=== PATIENT | female | born 1980 | race Caucasian/White ===

== ENCOUNTER 2021-10-23 13:12 | Emergency (ER) | payer MEDICARE, OTHER ==
[2021-10-23 13:16] VITALS: RESP 18; TEMP 98
[2021-10-23] MEDS ORDERED: SODIUM CHLORIDE 0.9% 1,000 ML IV STA (13:54)
[2021-10-23] MEDS ORDERED: PANTOPRAZOLE 40 MG/10 ML VIAL IVP STA (13:56)
[2021-10-23] MEDS ORDERED: diphenhydrAMINE 50 MG/ML 1 ML VIAL IVP STA (14:05)
[2021-10-23] MEDS ORDERED: methylPREDNISolone SOD SUCCI 125 MG/2 ML VIAL IV STA (14:05)
[2021-10-23] MEDS ORDERED: FAMOTIDINE 20 MG/2 ML VIAL IV STA (14:05)
--- NOTE | 2021-10-23 14:23 | ED ---
General Adult HPI - General Chief complaint: GI Bleed Stated complaint: GI Bleed Time Seen by Provider: 10/23/21 13:38 Source: patient Mode of arrival: ambulatory Limitations: no limitations - History of Present Illness Initial comments: This 41-year-old female with past medical history of diverticulitis and constipation presents to the emergency department with blood per rectum 7 days. Patient states she has noticed episodes of prior red blood in the toilet and on her toilet paper on-and-off for the last week. Patient states she does have a hemorrhoid that may be bleeding. Patient states she did have a small bowel movement 3 days ago and did notice some blood in her stool then. Patient states her regular bowel movements are a couple hard balls every few days. She states her last bowel movement that was like this was 3 days ago. She states there is no clots coming from her rectum. She describes as "dripping" when sitting down on the toilet and blood getting on the toilet paper after wiping. Patient states she has had a colonoscopy in her past and was told she had polyps. Patient states she does use on a daily. Patient denies any chest pain, nausea, fever, vomiting, hemoptysis, change in bladder, headache, change in vision, s hortness of breath. - Related Data Previous Rx's Medication Instructions Recorded Docusate [Colace] 100 mg PO DAILY #30 capsule 10/23/21 Levothyroxine Sodium [Synthroid] 75 mcg PO DAILY #7 tab 10/23/21 Allergies Allergy/AdvReac Type Severity Reaction Status Date / Time aspirin Allergy Unknown Verified 10/23/21 13:14 Childhood iodine Allergy Unknown Verified 10/23/21 13:14 Childhood Penicillins Allergy Unknown Verified 10/23/21 13:14 Childhood Review of Systems ROS Statement: Those systems with pertinent positive or pertinent negative responses have been documented in the HPI. ROS Other: All systems not noted in ROS Statement are negative. Past Medical History Past Medical History: Seizure Disorder, Thyroid Disorder History of Any Multi-Drug Resistant Organisms: None Reported Past Psychological History: No Psychological Hx Reported Smoking Status: Current every day smoker Past Alcohol Use History: None Reported Past Drug Use History: Marijuana General Exam Limitations: no limitations General appearance: alert, in no apparent distress Head exam: Present: atraumatic, normocephalic, normal inspection Eye exam: Present: normal appearance, PERRL, EOMI. Absent: scleral icterus, conjunctival injection, periorbital swelling ENT exam: Present: mucous membranes moist Neck exam: Present: full ROM Respiratory exam: Present: normal lung sounds bilaterally. Absent: respiratory distress, wheezes, rales, rhonchi, stridor Cardiovascular Exam: Present: regular rate, normal rhythm, normal heart sounds. Absent: systolic murmur, diastolic murmur, rubs, gallop, clicks GI/Abdominal exam: Present: soft, tenderness (Left lower quadrant tender to palpation), normal bowel sounds. Absent: distended, guarding, rebound, rigid Rectal exam: Present: normal rectal tone, heme (+) stool, hemorrhoids (1 hemorrhoid present. No active bleeding from hemorrhoid.), other (No blood visible from rectum) Extremities exam: Present: full ROM Back exam: Present: full ROM. Absent: tenderness, CVA tenderness (R), CVA tenderness (L) Neurological exam: Present: alert, oriented X3, CN II-XII intact Psychiatric exam: Present: normal affect, normal mood Skin exam: Present: warm, dry, intact, normal color. Absent: rash Course Vital Signs 10/23/21 10/23/21 13:14 17:14 Temperature 98 F Pulse Rate 94 68 Respiratory 18 18 Rate Blood Pressure 113/63 102/67 O2 Sat by Pulse 99 99 Oximetry - Reevaluation(s) Reevaluation #1: 10/23/21 17:00 Patient states she currently has no pain and feels well. Medical Decision Making - Medical Decision Making This 41-year-old female presents to the emergency department with bleeding per rectum 1 week. Patient states she does have a hemorrhoid that has been present for "a long time." She denies any clots per rectum and states it is "dripping when sitting down on the toilet and on the toilet paper". Labs unremarkable. Coagulations unremarkable. Urine unremarkable. Stool occult blood positive. CT abdomen and pelvis impression: There is no bowel obstruction present. There is some retained fecal material in the large bowel. Colace was prescribed patient. There is no ascites or free air. Normal appendix. Otherwise negative exam. Patient requested her TSH to be drawn which was high, but Synthroid given here with a week's worth prescribed until patient can follow up with a primary care provider. Patient to follow-up with primary care provider sometime next we ek. Patient was given primary care provider and GI provider contact information. Patient to be sent home to follow-up with GI next 24-48 hours. Strict return precautions were discussed. Patient verbally agreed to plan. Patient sent home in stable condition. Discussed this case with my attending, . - Lab Data Result diagrams: 10/23/21 14:15 10/23/21 14:15 Lab Results 10/23/21 10/23/21 10/23/21 Range/Units 14:05 14:13 14:15 WBC 8.4 (3.8-10.6) k/uL RBC 3.93 (3.80-5.40) m/uL Hgb 11.9 (11.4-16.0) gm/dL Hct 37.4 (34.0-46.0) % MCV 95.3 (80.0-100.0) fL MCH 30.4 (25.0-35.0) pg MCHC 31.8 (31.0-37.0) g/dL RDW 14.7 (11.5-15.5) % Plt Count 251 (150-450) k/uL MPV 9.1 Neutrophils % 65 % Lymphocytes % 26 % Monocytes % 3 % Eosinophils % 2 % Basophils % 1 % Neutrophils # 5.5 (1.3-7.7) k/uL Lymphocytes # 2.2 (1.0-4.8) k/uL Monocytes # 0.3 (0-1.0) k/uL Eosinophils # 0.2 (0-0.7) k/uL Basophils # 0.1 (0-0.2) k/uL Hypochromasia Slight PT (9.0-12.0) sec INR (<1.2) APTT (22.0-30.0) sec Sodium (137-145) mmol/L Potassium (3.5-5.1) mmol/L Chloride (98-107) mmol/L Carbon Dioxide (22-30) mmol/L Anion Gap mmol/L BUN (7-17) mg/dL Creatinine (0.52-1.04) mg/dL Est GFR (CKD-EPI)AfAm (>60 ml/min/1.73 sqM) Est GFR (CKD-EPI)NonAf (>60 ml/min/1.73 sqM) Glucose (74-99) mg/dL Plasma Lactic Acid Louis (0.7-2.0) mmol/L Calcium (8.4-10.2) mg/dL Magnesium (1.6-2.3) mg/dL Total Bilirubin (0.2-1.3) mg/dL AST (14-36) U/L ALT (4-34) U/L Alkaline Phosphatase (38-126) U/L Total Protein (6.3-8.2) g/dL Albumin (3.5-5.0) g/dL Lipase (23-300) U/L TSH (0.465-4.680) mIU/L Free T4 (0.78-2.19) ng/dL Urine Color Urine Appearance (Clear) Urine pH (5.0-8.0) Ur Specific Reading (1.001-1.035) Urine Protein (Negative) Urine Glucose (UA) (Negative) Urine Ketones (Negative) Urine Blood (Negative) Urine Nitrite (Negative) Urine Bilirubin (Negative) Urine Urobilinogen (<2.0) mg/dL Ur Leukocyte Esterase (Negative) Urine RBC (0-5) /hpf Urine WBC (0-5) /hpf Ur Squamous Epith Cells (0-4) /hpf Stool Occult Blood (Negative) Blood Type A Positive Blood Type Confirm A Positive Blood Type Recheck No Previous Record Bld Type Recheck Status CABO Indicated Antibody Screen NEGATIVE Spec Expiration Date 10/26/2021 - 231410/23/21 10/23/21 10/23/21 Range/Units 14:15 14:15 14:15 WBC (3.8-10.6) k/uL RBC (3.80-5.40) m/uL Hgb (11.4-16.0) gm/dL Hct (34.0-46.0) % MCV (80.0-100.0) fL MCH (25.0-35.0) pg MCHC (31.0-37.0) g/dL RDW (11.5-15.5) % Plt Count (150-450) k/uL MPV Neutrophils % % Lymphocytes % % Monocytes % % Eosinophils % % Basophils % % Neutrophils # (1.3-7.7) k/uL Lymphocytes # (1.0-4.8) k/uL Monocytes # (0-1.0) k/uL Eosinophils # (0-0.7) k/uL Basophils # (0-0.2) k/uL Hypochromasia PT 9.7 (9.0-12.0) sec INR 0.9 (<1.2) APTT 26.6 (22.0-30.0) sec Sodium 136 L (137-145) mmol/L Potassium 4.3 (3.5-5.1) mmol/L Chloride 108 H (98-107) mmol/L Carbon Dioxide 24 (22-30) mmol/L Anion Gap 4 mmol/L BUN 16 (7-17) mg/dL Creatinine 0.74 (0.52-1.04) mg/dL Est GFR (CKD-EPI)AfAm >90 (>60 ml/min/1.73 sqM) Est GFR (CKD-EPI)NonAf >90 (>60 ml/min/1.73 sqM) Glucose 90 (74-99) mg/dL Plasma Lactic Acid Louis (0.7-2.0) mmol/L Calcium 9.3 (8.4-10.2) mg/dL Magnesium 1.7 (1.6-2.3) mg/dL Total Bilirubin 0.2 (0.2-1.3) mg/dL AST 38 H (14-36) U/L ALT 29 (4-34) U/L Alkaline Phosphatase 59 (38-126) U/L Total Protein 7.2 (6.3-8.2) g/dL Albumin 4.2 (3.5-5.0) g/dL Lipase 156 (23-300) U/L TSH 39.600 H (0.465-4.680) mIU/L Free T4 0.19 L (0.78-2.19) ng/dL Urine Color Urine Appearance (Clear) Urine pH (5.0-8.0) Ur Specific Reading (1.001-1.035) Urine Protein (Negative) Urine Glucose (UA) (Negative) Urine Ketones (Negative) Urine Blood (Negative) Urine Nitrite (Negative) Urine Bilirubin (Negative) Urine Urobilinogen (<2.0) mg/dL Ur Leukocyte Esterase (Negative) Urine RBC (0-5) /hpf Urine WBC (0-5) /hpf Ur Squamous Epith Cells (0-4) /hpf Stool Occult Blood Positive H (Negative) Blood Type Blood Type Confirm Blood Type Recheck Bld Type Recheck Status Antibody Screen Spec Expiration Date 10/23/21 10/23/21 Range/Units 14:15 14:21 WBC (3.8-10.6) k/uL RBC (3.80-5.40) m/uL Hgb (11.4-16.0) gm/dL Hct (34.0-46.0) % MCV (80.0-100.0) fL MCH (25.0-35.0) pg MCHC (31.0-37.0) g/dL RDW (11.5-15.5) % Plt Count (150-450) k/uL MPV Neutrophils % % Lymphocytes % % Monocytes % % Eosinophils % % Basophils % % Neutrophils # (1.3-7.7) k/uL Lymphocytes # (1.0-4.8) k/uL Monocytes # (0-1.0) k/uL Eosinophils # (0-0.7) k/uL Basophils # (0-0.2) k/uL Hypochromasia PT (9.0-12.0) sec INR (<1.2) APTT (22.0-30.0) sec Sodium (137-145) mmol/L Potassium (3.5-5.1) mmol/L Chloride (98-107) mmol/L Carbon Dioxide (22-30) mmol/L Anion Gap mmol/L BUN (7-17) mg/dL Creatinine (0.52-1.04) mg/dL Est GFR (CKD-EPI)AfAm (>60 ml/min/1.73 sqM) Est GFR (CKD-EPI)NonAf (>60 ml/min/1.73 sqM) Glucose (74-99) mg/dL Plasma Lactic Acid Louis 1.1 (0.7-2.0) mmol/L Calcium (8.4-10.2) mg/dL Magnesium (1.6-2.3) mg/dL Total Bilirubin (0.2-1.3) mg/dL AST (14-36) U/L ALT (4-34) U/L Alkaline Phosphatase (38-126) U/L Total Protein (6.3-8.2) g/dL Albumin (3.5-5.0) g/dL Lipase (23-300) U/L TSH (0.465-4.680) mIU/L Free T4 (0.78-2.19) ng/dL Urine Color Yellow Urine Appearance Cloudy H (Clear) Urine pH 6.5 (5.0-8.0) Ur Specific Reading 1.017 (1.001-1.035) Urine Protein Negative (Negative) Urine Glucose (UA) Negative (Negative) Urine Ketones Negative (Negative) Urine Blood Negative (Negative) Urine Nitrite Negative (Negative) Urine Bilirubin Negative (Negative) Urine Urobilinogen <2.0 (<2.0) mg/dL Ur Leukocyte Esterase Negative (Negative) Urine RBC 1 (0-5) /hpf Urine WBC <1 (0-5) /hpf Ur Squamous Epith Cells 7 H (0-4) /hpf Stool Occult Blood (Negative) Blood Type Blood Type Confirm Blood Type Recheck Bld Type Recheck Status Antibody Screen Spec Expiration Date Disposition Clinical Impression: External hemorrhoid, GI bleed Disposition: HOME SELF-CARE Condition: Stable Instructions (If sedation given, give patient instructions): Gastrointestinal Bleeding (ED), Hemorrhoids (ED) Additional Instructions: Please return to the emergency department with any concerning, new, worsening symptoms. Follow-up with primary care provider next 24-48 hours. Follow-up with GI next 24-48 hours. Prescriptions: Docusate [Colace] 100 mg PO DAILY #30 capsule Levothyroxine Sodium [Synthroid] 75 mcg PO DAILY #7 tab Is patient prescribed a controlled substance at d/c from ED?: No Referrals: None,Stated [Primary Care Provider] - 1-2 days Nickie Rincon MD [REFERRING] - 1-2 days Radha Dominguez MD [STAFF PHYSICIAN] - 1-2 days Time of Disposition: 17:12
[2021-10-23 14:37] LABS: Basophils # (A) 0.1 k/uL (0-0.2); Basophils % (A) 1 %; Eosinophils # (A) 0.2 k/uL (0-0.7); Eosinophils % (A) 2 %; HCT 37.4 % (34.0-46.0); HGB 11.9 gm/dL (11.4-16.0); Hypochromasia Slight; Lymphocytes # (A) 2.2 k/uL (1.0-4.8); Lymphocytes % (A) 26 %; MCH 30.4 pg (25.0-35.0); MCHC 31.8 g/dL (31.0-37.0); MCV 95.3 fL (80.0-100.0); Mean Platelet Volume 9.1; Monocytes # (A) 0.3 k/uL (0-1.0); Monocytes % (A) 3 %; Neutrophils # (A) 5.5 k/uL (1.3-7.7); Neutrophils % (A) 65 %; Platelet Count 251 k/uL (150-450); RBC 3.93 m/uL (3.80-5.40); RDW 14.7 % (11.5-15.5); WBC 8.4 k/uL (3.8-10.6)
[2021-10-23 14:42] LABS: ALT 29 U/L (4-34); AST 38 U/L (14-36); African American GFR (CKD) >90 (>60 ml/min/1.73 sqM); Albumin 4.2 g/dL (3.5-5.0); Alkaline Phosphatase 59 U/L (38-126); Anion Gap 4 mmol/L; Blood Urea Nitrogen 16 mg/dL (7-17); Calcium 9.3 mg/dL (8.4-10.2); Carbon Dioxide 24 mmol/L (22-30); Chloride 108 mmol/L (98-107); Glucose 90 mg/dL (74-99); Lipase 156 U/L (23-300); Magnesium 1.7 mg/dL (1.6-2.3); Non-African American GFR(CKD) >90 (>60 ml/min/1.73 sqM); Potassium 4.3 mmol/L (3.5-5.1); Sodium 136 mmol/L (137-145); Total Bilirubin 0.2 mg/dL (0.2-1.3); Total Protein 7.2 g/dL (6.3-8.2)
[2021-10-23 14:47] LABS: INR 0.9 (<1.2); Partial Thromboplastin Time 26.6 sec (22.0-30.0); Prothrombin Time 9.7 sec (9.0-12.0)
[2021-10-23 15:03] LABS: Appearance,Urine Cloudy (Clear); Bilirubin,Urine Negative (Negative); Blood,Urine Negative (Negative); Color,Urine Yellow; Glucose,Urine (UA) Negative (Negative); Ketones,Urine Negative (Negative); Leukocyte Esterase,Urine Negative (Negative); Nitrite,Urine Negative (Negative); PH, Urine 6.5 (5.0-8.0); Protein,Urine Negative (Negative); RBC,Urine 1 /hpf (0-5); Specific Gravity,Urine 1.017 (1.001-1.035); Squamous Epithelial Cell,Urine 7 /hpf (0-4); Urobilinogen,Urine <2.0 mg/dL (<2.0); WBC,Urine <1 /hpf (0-5)
--- NOTE | 2021-10-23 15:12 | CT ---
EXAMINATION TYPE: CT abdomen pelvis w con DATE OF EXAM: 10/23/2021 COMPARISON: None HISTORY: Abdomen pain, blood in stool. Not a GI protocol, per TWILA Hutson CT DLP: 868 mGycm Automated exposure control for dose reduction was used. CONTRAST: Performed with IV Contrast, patient injected with 100 mL of Isovue 300. Images obtained from the diaphragm to the floor of the pelvis with IV contrast. Lung bases are clear. There is no pleural effusion. Heart size is normal. There is no pericardial eff usion. Liver spleen and stomach pancreas and gallbladder appear normal. The bile ducts are not dilated. The kidneys have normal size and contour. There is satisfactory contrast opacification. There is no h ydronephrosis. There is no adrenal mass. There is no retroperitoneal adenopathy. Ureters are nondilat ed. Delayed images show normal renal excretion. Appendix is posterior and appears normal. Bladder distends smoothly. There is no inguinal hernia. Lumbar vertebrae have normal alignment. Poste rior elements are intact. There is no compression fracture. Uterus is anteverted. There is no evidence of a pelvic mass. There is no free fluid in the pelvis. Th ere is no mesenteric edema. There is no ascites or free air. There is no bowel obstruction. There is some retained fecal material in the large bowel. IMPRESSION: There is evidence for some constipation. Otherwise negative exam. Normal appendix.
[2021-10-23 16:16] LABS: T4, Free (Free Thyroxine) 0.19 ng/dL (0.78-2.19)
[2021-10-23] MEDS ORDERED: LEVOTHYROXINE 125 MCG TAB PO STA (16:42)
[2021-10-23 17:15] VITALS: BP 102/67; PULSE 68
== END 2021-10-23 17:49 | disposition home or self-care (01) ==
LOC: EC 13:12
DX: K64.4 Residual hemorrhoidal skin tags (principal); E07.9 Disorder of thyroid, unspecified; F17.200 Nicotine dependence, unspecified, uncomplicated; F12.90 Cannabis use, unspecified, uncomplicated; Z88.0 Allergy status to penicillin
CPT/HCPCS: 99284; 96374; 96375 ×3; 36415; 86900; 86901; 84439; 80053; 84443; 83605; 83690; 83735; 85025; 85610; 85730; 86850; 82272; 81001; 74177; J1200; J2930; C9113; Q9967